=== PATIENT | male | born 2000 | race Two or more races ===

== ENCOUNTER 2022-05-05 01:52 | Emergency (ER) | payer SELFPAY ==
[~2022-05-05] VITALS: Ht 165.1 cm; Wt 59.0 kg
[2022-05-05 01:58] VITALS: BP 130/85
== END 2022-05-05 08:11 | disposition left against medical advice (07) ==
LOC: ER 01:52
DX: R68.89 Other general symptoms and signs (principal); Z53.21 Procedure and treatment not carried out due to patient leaving prior to being seen by health care provider
CPT/HCPCS: 99281